=== PATIENT | female | born 1945 | race American Indian/Alaskan Native ===

== ENCOUNTER 2018-12-24 16:44 | Observation (INO) | payer MEDICARE ==
[2018-12-24] MEDS ORDERED: NACL 0.9% 500 ML 500 ML IV ONE (17:16)
--- NOTE | 2018-12-24 17:22 | Emergency Department Report ---
ED Syncope HPI - General Chief Complaint: Syncope Stated Complaint: SYNCOPE Time Seen by Provider: 12/24/18 17:04 Source: patient, family, EMS (ems notes not available at time of chart dictation) Exam Limitations: other (patient does not remember what happened) - History of Present Illness Initial Comments: This is a 73-year-old female. Her primary care doctor is Dr. Jen Jessica. Her sizer machine is Dr. Myles at [facility] [place] Patient endorses being admitted to the aforementioned hospital last month, for "heart attack", endorses at least one stent deployment, and is brought to the hospital today by emergency medical services for possible syncopal event. History is primarily obtained from the patient's son. The patient's son endorses that the patient was in her usual state of health, talking, when she stops talking, her eyes rolled in the back of her head, she grunted, and became unresponsive. There may or may not have been some shaking. The episode lasted for about a minute and a half. The patient endorses compliance with her medications. She does not recall the names of her medications. The patient denies preceding pain and preceding trauma. She currently denies headache, neck pain, chest pain, abdominal pain, shortness of breath. She denies urinary symptoms. She has chronic left-sided paracervical neck discomfort. This is not a new, worsening or different. Timing/Prior Episodes: single episode today Precipitating Factors: Positive: confusion Context: sitting Loss of Consciousness: brief (seconds) Current Symptoms: back to normal - Related Data Allergies/Adverse Reactions: Allergies Iodinated Contrast- Oral and IV Dye Allergy (Verified 12/24/18 16:54) Unknown Home Medications: Ambulatory Orders Aspirin 81 mg PO QDAY 12/24/18 AtorvaSTATin 40 mg PO QHS 12/24/18 Brilinta 90 mg PO QDAY 12/24/18 Gabapentin 300 mg PO 4XD 12/24/18 Metoprolol 100 mg PO QDAY 12/24/18 Pantoprazole 40 mg PO QDAY 12/24/18 amLODIPine [Norvasc] QDAY 12/24/18 traMADol 50 mg PRN 12/24/18 ED Review of Systems ROS: Stated complaint: SYNCOPE Other details as noted in HPI Constitutional: malaise Eyes: denies: eye discharge ENT: denies: epistaxis Respiratory: denies: cough Cardiovascular: syncope. denies: chest pain Gastrointestinal: denies: vomiting Genitourinary: denies: dysuria Musculoskeletal: denies: arthralgia Skin: denies: lesions Neurological: confusion. denies: headache Psychiatric: anxiety ED Past Medical Hx - Past Medical History Previous Medical History?: Yes Hx CVA: Yes Hx Heart Attack/AMI: Yes (stent placement) Additional medical history: colon cancer - Surgical History Past Surgical History?: No - Social History Smoking Status: Never Smoker Substance Use Type: None - Medications Home Medications: Home Medications Medication Instructions Recorded Confirmed Last Taken Type Aspirin 81 mg PO QDAY 12/24/18 12/24/18 Unknown History AtorvaSTATin 40 mg PO QHS 12/24/18 12/24/18 Unknown History Brilinta 90 mg PO QDAY 12/24/18 12/24/18 Unknown History Gabapentin 300 mg PO 4XD 12/24/18 12/24/18 Unknown History Metoprolol 100 mg PO QDAY 12/24/18 12/24/18 Unknown History Pantoprazole 40 mg PO QDAY 12/24/18 12/24/18 Unknown History amLODIPine [Norvasc] QDAY 12/24/18 Unknown History traMADol 50 mg PRN 12/24/18 12/24/18 Unknown History ED Physical Exam - General Limitations: No Limitations General appearance: alert, in no apparent distress - Head Head exam: Present: atraumatic, normocephalic - Eye Eye exam: Present: normal appearance, EOMI, other (visual acuity intact to finger counting, color perception, reading at a close distance). Absent: nystagmus - ENT ENT exam: Present: normal exam, normal orophraynx, mucous membranes moist, normal external ear exam - Neck Neck exam: Present: normal inspection, full ROM. Absent: tenderness, meningism us - Respiratory Respiratory exam: Present: normal lung sounds bilaterally. Absent: respiratory distress - Cardiovascular Cardiovascular Exam: Present: regular rate, normal rhythm, normal heart sounds. Absent: bradycardia, tachycardia, irregular rhythm, systolic murmur, diastolic murmur, rubs, gallop - GI/Abdominal GI/Abdominal exam: Present: soft. Absent: distended, tenderness, guarding, rebound, rigid, pulsatile mass - Extremities Exam Extremities exam: Present: normal inspection, full ROM, other (2+ pulses noted in the bilateral upper, lower extremities. Compartments soft. No long bony tenderness. The pelvis is stable.). Absent: pedal edema, joint swelling, calf tenderness - Back Exam Back exam: Present: normal inspection, full ROM. Absent: tenderness, CVA tenderness (R), CVA tenderness (L), paraspinal tenderness, vertebral tenderness - Neurological Exam Neurological exam: Present: alert, oriented X3, other (Extraocular movements intact. Tongue midline. No facial droop. Facial sensation intact to light touch in the V1, V2, V3 distribution bilaterally. 5 and 5 strength in 4 extremities.. Sensation is intact to light touch in 4 extremities.). Absent: motor sensory deficit - Psychiatric Psychiatric exam: Present: flat affect - Skin Skin exam: Present: warm, dry, intact, normal color. Absent: rash ED Course Vital Signs 12/24/18 12/24/18 12/24/18 16:55 19:12 21:12 Temperature 97.2 F L 98.1 F 98 F Pulse Rate 66 78 71 Respiratory 16 14 18 Rate Blood Pressure 103/71 Blood Pressure 130/76 144/82 [Right] O2 Sat by Pulse 96 96 97 Oximetry - Reevaluation(s) Reevaluation #1: 12/24/18 17:20 Differential diagnosis, including without limited to: Orthostasis, vagal event, structural cardiac disease, pulmonary embolus, intracranial lesion, acute coronary syndrome, medication side effect, seizure, pseudoseizure, pneumonia, urinary tract infection Assessment and plan: 73-year-old female, reports placement of cardiac stents last month for "heart attack", with seizure versus syncope. There is no antecedent or resulting trauma. The patient has a GCS of 15. She has an NIH score of 0. She reports being able to tolerate oral contrast, but typically requires premedication with Benadryl and steroids, to prevent "hives." She does not endorse any symptoms of anaphylaxis. Review of systems is otherwise essentially unremarkable. We will obtain a CT scan of the brain, x-ray of the chest, appropriate screening laboratory studies, and placed the patient on a cardiac specialist. We will attempt to obtain her old medical records. She is not having chest pain at this time. We have recommended admission for seizure versus syncope. D iscussed this with patient and son, who verbalized understanding. Reevaluation #2: 12/24/18 22:11 Patient is observed in the emergency room for a few hours without syncopal event. CT scan of the chest is negative for pulmonary embolus. Incidental chronic findings are appreciated. Dr. Underwood has accepted the patient to the medical service for further evaluation of unprovoked syncope. ED Medical Decision Making - Lab Data Result diagrams: 12/24/18 18:04 12/24/18 18:04 Vital Signs 12/24/18 16:55 Temperature 97.2 F L Pulse Rate 66 Respiratory 16 Rate Blood Pressure 103/71 O2 Sat by Pulse 96 Oximetry - EKG Data -: EKG Interpreted by Ia EKG shows normal: sinus rhythm Rate: normal - EKG Data When compared to previous EKG there are: previous EKG unavailable 12/24/18 17:22 This is a normal sinus rhythm, 66 bpm, normal axis, QTC prolonged, left ventricular hypertrophy, repolarization abnormality in the lateral leads, atrial enlargement, motion artifact, T-wave inversions/flattening in the high lateral and inferior leads, this is an abnormal EKG, the patient is not endorsing chest pain, this EKG is not consistent with ST elevation myocardial infarction. Critical care attestation.: If time is entered above; I have spent that time in minutes in the direct care of this critically ill patient, excluding procedure time. ED Disposition Clinical Impression: Syncope, History of coronary artery disease Disposition: OP ADMIT IP TO THIS HOSP Is pt being admited?: Yes Does the pt Need Aspirin: Yes Condition: Good Instructions: Syncope (ED)
[2018-12-24 18:20] LABS: Basophils % (Auto) 0.6 % (0.0-1.8); Eosinophils # (Auto) 0.2 K/mm3 (0.0-0.4); Eosinophils % (Auto) 3.8 % (0.0-4.3); Hematocrit 38.5 % (30.3-42.9); Hemoglobin 12.6 gm/dl (10.1-14.3); Lymphocytes # (Auto) 1.5 K/mm3 (1.2-5.4); Lymphocytes % (Auto) 22.7 % (13.4-35.0); Mean Corpuscular HGB Conc 33 % (30-34); Mean Corpuscular Volume 94 fl (79-97); Monocytes # (Auto) 0.4 K/mm3 (0.0-0.8); Platelet Count 220 K/mm3 (140-440); Red Blood Count 4.09 M/mm3 (3.65-5.03); Red Cell Distribution Width 15.4 % (13.2-15.2)
--- NOTE | 2018-12-24 18:21 | Cat Scan Report ---
PROCEDURE: CT HEAD/BRAIN WO CON TECHNIQUE: Computerized tomography of the head was performed without contrast material. CT DOSE LENGTH PRODUCT: 1047.5 mGycm HISTORY: Syncope COMPARISONS: None . FINDINGS: Skull and scalp: Prior right parietal craniotomy is noted. . Paranasal sinuses: Normal . Ventricles and subarachnoid spaces: Focal ballooning of the right occipital horn is seen related to encephalomalacia . Cerebrum: Remote low-density areas of encephalomalacia are seen in the posterior right frontal lobe/a nterior right temporal lobe and the occipital lobe on the right. Cerebellum and brainstem: No evidence of hemorrhage, acute infarction or mass . Vasculature: Normal . Other: None . ASPECTS: 10 IMPRESSION: No acute intracranial abnormality. Postsurgical findings and encephalomalacia on the righ t. This document is electronically signed by Kathy Sheehan MD., December 24 2018 07:19:47 PM ET
[2018-12-24 18:37] LABS: INR 0.98 (0.87-1.13)
[2018-12-24 18:44] LABS: Creatine Kinase MB 1.5 ng/mL (0.0-4.0)
[2018-12-24 18:47] LABS: Alanine Aminotransferase 19 units/L (7-56); Albumin 3.3 g/dL (3.9-5); BUN/Creatinine Ratio 18; Blood Urea Nitrogen 14 mg/dL (7-17); Calcium 8.4 mg/dL (8.4-10.2); Hemolysis Index 24
--- NOTE | 2018-12-24 18:52 | XRay Report ---
PROCEDURE: XR CHEST 1V AP TECHNIQUE: Chest radiograph single view. HISTORY: Syncope COMPARISONS: None . FINDINGS: There is atherosclerotic calcification in the thoracic aorta. Otherwise, The cardiomediastinal silhou ette appears normal. The lungs are clear. The bones and soft tissues are unremarkable. IMPRESSION: No evidence of acute cardiopulmonary disease. This document is electronically signed by Ayla Hudson MD., December 24 2018 07:50:42 PM ET
[2018-12-24] MEDS ORDERED: PEPCID IV ONE (19:17)
[2018-12-24] MEDS ORDERED: SOLU-Medrol IV ONE (19:17)
[2018-12-24] MEDS ORDERED: BENADRYL IV ONE (19:17)
--- NOTE | 2018-12-24 21:53 | Cat Scan Report ---
PROCEDURE: CT ANGIO CHEST TECHNIQUE: Computerized tomographic angiography of the chest was performed after the IV injection of iodinated nonionic contrast including image processing. Scanning was performed in the axial plane. I mages were reconstructed in sagittal and coronal planes. HISTORY: Syncope COMPARISONS: None . TECHNIQUE: Computerized tomographic angiography of the chest was performed after the IV injection of iodinated nonionic contrast including image processing. Images are reconstructed in the sagittal and coronal plane HISTORY: Syncope COMPARISONS: None . FINDINGS: There is no evidence of PE. The pulmonary arteries opacify normally. There is heavy coronary artery atherosclerotic calcification. Otherwise, the heart appears normal. There is diffuse atherosclerosis of the thoracic aorta without aneurysm or dissection. There are diffuse bilateral emphysematous changes and the lungs are hyperaerated there is mild bibasi lar subpleural fibrosis greater on the left than the right. There is a 6 mm peripheral pleural-based right lower lobe smoothly marginated pulmonary nodules. There is no evidence of pleural effusion. The bones are unremarkable. Images through the upper abdomen are unremarkable. IMPRESSION: 1. No evidence of acute PE 2. Coronary artery atherosclerotic disease with heavy coronary artery atherosclerotic calcification 3. Emphysema and mild bibasilar subpleural fibrosis 4. 6 mm right lower lobe peripheral pleural-based nodule. Follow-up CT is recommended in 6-12 months. This document is electronically signed by Ayla Hudson MD., December 24 2018 10:51:49 PM ET
[2018-12-24] MEDS ORDERED: BABY ASPIRIN PO ONE (22:11)
[2018-12-24 22:16] LABS: Bilirubin,Urine NEG (Negative); Blood,Urine NEG (Negative); Color,Urine Straw (Yellow); Protein,Urine <15 mg/dL mg/dL (Negative); RBC,Urine < 1.0 /HPF (0.0-6.0); Urobilinogen,Urine < 2.0 mg/dL (<2.0); WBC,Urine < 1.0 /HPF (0.0-6.0)
[2018-12-24 22:26] LABS: Amphetamine Screen,Urine PRESUMPTIVE NEGATIVE; Benzodiazepines Screen,Urine PRESUMPTIVE NEGATIVE; Cannabinoid Screen,Urine PRESUMPTIVE NEGATIVE; Cocaine Screen,Urine PRESUMPTIVE NEGATIVE; Methadone Screen,Urine PRESUMPTIVE NEGATIVE; Opiate Screen,Urine PRESUMPTIVE NEGATIVE
--- NOTE | 2018-12-24 22:55 | History and Physical Report ---
History of Present Illness Date of examination: 12/24/18 History of present illness: 73-year-old woman with a history of coronary artery disease, status post stent 2 weeks ago, peripheral vascular disease, CVA, colon cancer, breast cancer comes to the emergency room for evaluation of syncope. She states she was sitting down getting her hair braided, she felt funny, light-headed. She stated that her son ssaid that her eyes rool back and she passed out for < 2 minutes. She has shortness of breath since after cardiac cath, she is scheduled to see her director learning in the morning Review of systems Constitutional: no weight loss, chills, fever Ears, eyes, nose, mouth and throat: no nasal congestion, no nasal discharge, no sinus pressure, no vision change, no red eye. Neck: No neck pain or rigidity. Cardiovascular: no palpitations, chest pain Respiratory: no cough, + shortness of breath Gastrointestinal: no hematochezia, abdominal pain Genitourinary : no frequency , no hematuria Musculoskeletal: no joint swelling or muscle ache Integumentary: no rash, no pruritis Neurological: no parathesias, no focal weakness Endocrine: no cold or heat intolerance, no polyuria or polydipsia Hematologic/Lymphatic: no easy bruising, no easy bleeding, no gland swelling Allergic/Immunologic: no urticaria, no angioedema. PAST MEDICAL HISTORY: coronary artery disease, peripheral vascular disease, CVA, colon cancer, breast cancer PAST SURGICAL HISTORY: Left colectomy, left mastectomy, hysterectomy, SOCIAL HISTORY: Denies alcohol, drugs, quit tobacco recently FAMILY HISTORY: Hypertension Medications and Allergies Allergies Allergy/AdvReac Type Severity Reaction Status Date / Time Iodinated Contrast- Oral and Allergy Unknown Verified 12/24/18 16:54 IV Dye Home Medications Medication Instructions Recorded Confirmed Last Taken Type Aspirin 81 mg PO QDAY 12/24/18 12/24/18 Unknown History AtorvaSTATin 40 mg PO QHS 12/24/18 12/24/18 Unknown History Brilinta 90 mg PO BID 12/24/18 12/25/18 Unknown History Gabapentin 300 mg PO 4XD 12/24/18 12/24/18 Unknown History Metoprolol 100 mg PO QDAY 12/24/18 12/24/18 Unknown History Pantoprazole 40 mg PO QDAY 12/24/18 12/24/18 Unknown History amLODIPine [Norvasc] 10 mg PO QDAY 12/24/18 12/25/18 Unknown History traMADol 50 mg PRN 12/24/18 12/24/18 Unknown History Pantoprazole [Protonix TAB] 40 mg PO QDAY 12/25/18 12/25/18 Unknown History Exam - Physical Exam Narrative exam: General Apperance: The patient lying in bed, breathing comfortable HEENT: Normocephalic, atraumatic. Pupils equally round and reactive to light, EOMI, no sclericterus or JVD or thyromegaly or nodule. , no carotid bruit, mucous membranes moist, no exudate or erythema Heart: S1-S2, regular is rhythm Lungs: Clear to auscultation bilaterally, breathing comfortable Abdomen: Positive bowel sounds, soft, nontender, nondistended, no organomegaly Extremities: No edema cyanosis clubbing Skin: no rash, nodule, warm and dry Neuro: cranial nerves 2-12 intact, speech is fluent, motor/sensory intact - Constitutional Vitals: Temp Pulse Resp BP Pulse Ox 98 F 71 18 144/82 97 12/24/18 21:12 12/24/18 21:12 12/24/18 21:12 12/24/18 21:12 12/24/18 21:12 Results - Labs CBC & Chem 7: 12/25/18 05:28 12/24/18 18:04 Labs: Abnormal lab results 12/24/18 12/24/18 12/24/18 Range/Units 18:04 18:04 18:04 RDW 15.4 H (13.2-15.2) % D-Dimer 550.48 H (0-234) ng/mlDDU Chloride 113.0 H (98-107) mmol/L Carbon Dioxide 17 L (22-30) mmol/L Albumin 3.3 L (3.9-5) g/dL Ur Specific [place] (1.003-1.030) Salicylates (2.8-20.0) mg/dL Acetaminophen (10.0-30.0) ug/mL 12/24/18 12/24/18 12/24/18 Range/Units 18:04 18:04 21:11 RDW (13.2-15.2) % D-Dimer (0-234) ng/mlDDU Chloride (98-107) mmol/L Carbon Dioxide (22-30) mmol/L Albumin (3.9-5) g/dL Ur Specific [place] 1.038 H (1.003-1.030) Salicylates 1.2 L (2.8-20.0) mg/dL Acetaminophen 5.9 L (10.0-30.0) ug/mL - Imaging and Cardiology EKG: report reviewed CT scan - chest: report reviewed CT Scan - head: report reviewed Assessment and Plan Assessment Syncope coronary artery disease peripheral vascular disease H/o CVA, colon cancer, breast cancer Plan Admit to medicine Check cardiac enzymes, echo, carotid doppler consult cardiology Continue appropiate outpatient medicaations
[2018-12-24 23:35] LABS: Creatine Kinase MB 1.6 ng/mL (0.0-4.0)
[2018-12-24] MEDS ORDERED: ZOFRAN IV PRN (23:59)
[2018-12-24] MEDS ORDERED: SODIUM CHLORIDE FLUSH SYRINGE 10 ML IV PRN (23:59)
[2018-12-24] MEDS ORDERED: TYLENOL PO PRN (23:59)
[2018-12-25 01:01] LABS: Creatine Kinase MB 1.6 ng/mL (0.0-4.0)
[2018-12-25] MEDS: PERCOCET 5/325 PO PRN ×2 (04:44→11:31)
[2018-12-25 06:33] LABS: Basophils % (Auto) 0.1 % (0.0-1.8); Hemoglobin 12.6 gm/dl (10.1-14.3); Lymphocytes # (Auto) 0.6 K/mm3 (1.2-5.4); Lymphocytes % (Auto) 12.2 % (13.4-35.0); Mean Corpuscular HGB Conc 34 % (30-34); Mean Corpuscular Volume 93 fl (79-97); Monocytes % (Auto) 0.7 % (0.0-7.3); Platelet Count 209 K/mm3 (140-440); Red Cell Distribution Width 14.7 % (13.2-15.2)
[2018-12-25 06:51] LABS: Creatine Kinase MB 1.6 ng/mL (0.0-4.0)
[2018-12-25 06:52] LABS: BUN/Creatinine Ratio 23; Blood Urea Nitrogen 16 mg/dL (7-17); Calcium 8.8 mg/dL (8.4-10.2); Hemolysis Index 4
[2018-12-25] MEDS ORDERED: BRILINTA PO SCH ×2 (10:00)
[2018-12-25] MEDS ORDERED: TOPROL XL PO SCH (10:00)
[2018-12-25] MEDS ORDERED: SODIUM CHLORIDE FLUSH SYRINGE 10 ML IV SCH (10:00)
[2018-12-25] MEDS ORDERED: HALFPRIN EC PO SCH (10:00)
[2018-12-25] MEDS ORDERED: LOVENOX SUB-Q SCH (10:00)
[2018-12-25] MEDS ORDERED: PROTONIX PO SCH (10:00)
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
--- NOTE | 2018-12-25 12:17 | Vascular Lab Report ---
PROCEDURE: VL CAROTID DUPLEX BILAT TECHNIQUE: Bilateral carotid duplex Doppler ultrasound. Grayscale, color flow and spectral waveform images were obtained. HISTORY: syncope COMPARISON: None FINDINGS: There is mild heterogeneous plaque seen at level of carotid bifurcations. There is no elevation abnormal elevation in carotid flow velocity. There is no evidence of a hemodyna mically significant stenosis. Specifically, findings indicate stenoses of less than 50%. Vertebral artery flow is antegrade bilaterally. IMPRESSION: No evidence of any hemodynamically significant stenosis. This document is electronically signed by Gretchen Holloway MD., December 25 2018 12:15:36 PM ET
[2018-12-25] MEDS: NEURONTIN PO SCH ×2 (12:51→13:47)
[2018-12-25 13:24] VITALS: BP 112/69
--- NOTE | 2018-12-25 13:46 | Discharge Summary ---
Providers - Providers Date of Admission: 12/24/18 22:54 Date of discharge: 12/25/18 Attending physician: LINO DIAZ 12/24/18 23:59 Consult to Physician [CONS] Routine Comment: Consulting Provider: LINO CHRISTIAN Physician Instructions: Reason For Exam: syncope Primary care physician: BLOCK SETTER GYPSUM Hospitalization Condition: Good Hospital course: Patient is 73-year-old woman with a history of coronary artery disease, status post stent 2 weeks ago, peripheral vascular disease, CVA, colon cancer, breast cancer presente to the emergency room for evaluation of syncope. She states she was sitting down getting her hair braided, she felt funny, light-headed and fainted. She was seen and evaluated in Emergency Department and admitted.She was evaluated by cardiology, and recommended discharge home to follow in Office for event monitor. Syncope due to Vasovagal. Disposition: TO HOME OR SELFCARE - Discharge Diagnoses (1) CAD (coronary artery disease) Status: Acute (2) Syncope Status: Acute Qualifiers: Syncope type: vasovagal syncope Qualified Code(s): R55 - Syncope and collapse (3) History of stroke Status: Acute (4) History of breast cancer Status: Acute (5) History of colon cancer Status: Acute Core Measure Documentation - Palliative Care Palliative Care/ Comfort Measures: Not Applicable - Core Measures Any of the following diagnoses?: none Exam - Constitutional Vitals: Temp Pulse Resp BP Pulse Ox 98.1 F 38 L 18 112/69 95 12/25/18 13:17 12/25/18 13:17 12/25/18 13:17 12/25/18 13:17 12/25/18 13:17 Plan Diet: low fat, low cholesterol, low salt Additional Instructions: 1.Follow up with PCP in 3-5 days. 2.Follow up with Sr Community Manager in 3-5 days. 3.No strenous activity until cleared by cardiology Follow up with: PRIMARY MD SCOTTIE [Primary Care Provider] - 3-5 Days
== END 2018-12-25 15:09 | disposition home or self-care (01) ==
LOC: ED 16:44 → 4A 22:54
PROVIDERS: ADMIT Internal Medicine; ATTEND Internal Medicine
DX: I25.10 Atherosclerotic heart disease of native coronary artery without angina pectoris (principal); R55 Syncope and collapse; I73.9 Peripheral vascular disease, unspecified; Z86.73 Personal history of transient ischemic attack (TIA), and cerebral infarction without residual deficits; Z85.038 Personal history of other malignant neoplasm of large intestine; Z85.3 Personal history of malignant neoplasm of breast; Z95.5 Presence of coronary angioplasty implant and graft; Z90.710 Acquired absence of both cervix and uterus; Z90.12 Acquired absence of left breast and nipple; Z90.49 Acquired absence of other specified parts of digestive tract; Z87.891 Personal history of nicotine dependence; Z79.82 Long term (current) use of aspirin; Z79.899 Other long term (current) drug therapy
CPT/HCPCS: 36415; 70450; 71045; 71275; 80048; 80053; 80307; 81001; 82550; 82553; 83735; 84484; 85025; 85379; 85610; 93005; 93010; 93880; 96374; 96375; 99284; 99406; G0378; G0480; J1200; J2930; J7040; Q9967; 80320